=== PATIENT | male | born 1950 | race Caucasian/White ===

== ENCOUNTER → 2024-05-26 12:41 | Outpatient (REF) | payer OTHER, SELFPAY | LOC: RAD 12:41 | PROVIDERS: ATTENDING PHYSICIAN Physician Assistant Medical; FAMILY PHYSICIAN Family Medicine | DX: R06.02 Shortness of breath (principal) | CPT/HCPCS: 71046 ==

== ENCOUNTER → 2024-06-27 14:34 | Outpatient (REF) | payer OTHER, SELFPAY | LOC: HWRAD 14:34 | PROVIDERS: ATTENDING PHYSICIAN Internal Medicine Endocrinology, Diabetes & Metabolism; FAMILY PHYSICIAN Family Medicine | DX: E04.2 Nontoxic multinodular goiter (principal) | CPT/HCPCS: 76536 ==

== ENCOUNTER 2024-09-25 06:21 | Day surgery (SDC) | payer OTHER, SELFPAY | END 2024-09-25 16:06 | disposition home or self-care (01) | LOC: GI 06:21 | PROVIDERS: ATTENDING PHYSICIAN Internal Medicine | DX: D50.9 Iron deficiency anemia, unspecified (principal); K64.8 Other hemorrhoids; K57.10 Diverticulosis of small intestine without perforation or abscess without bleeding; K62.5 Hemorrhage of anus and rectum | CPT/HCPCS: 45378; 43239; 88305; 88342 ==

== ENCOUNTER 2024-09-29 10:31 | Outpatient (RCR) | payer OTHER, SELFPAY ==
[2024-09-29 11:05] VITALS: BP 141/79
[2024-09-29] MEDS: VENOFER 110 MG IV (11:11)
[2024-09-29 12:30] VITALS: BP 124/68
== END 2024-10-01 13:47 | disposition home or self-care (01) ==
LOC: OID 10:31
PROVIDERS: ATTENDING PHYSICIAN Internal Medicine; FAMILY PHYSICIAN Family Medicine
DX: D50.9 Iron deficiency anemia, unspecified (principal); K62.5 Hemorrhage of anus and rectum; K64.9 Unspecified hemorrhoids
CPT/HCPCS: 96365; J1756

== ENCOUNTER 2024-10-28 10:37 | Outpatient (RCR) | payer OTHER, SELFPAY ==
[2024-10-06 10:52] VITALS: BP 142/80
[2024-10-06] MEDS: VENOFER 110 MG IV (11:13)
[2024-10-06 12:28] VITALS: BP 129/77
[2024-10-13 10:50] VITALS: BP 131/78
[2024-10-13] MEDS: VENOFER 110 MG IV (11:01)
[2024-10-13 12:05] VITALS: BP 126/74
[2024-10-20 11:08] VITALS: BP 147/70
[2024-10-20] MEDS: VENOFER 110 MG IV (11:18)
[2024-10-20 12:23] VITALS: BP 138/76
[2024-10-28 10:45] VITALS: BP 148/74
[2024-10-28] MEDS: VENOFER 110 MG IV (10:53)
[2024-10-28 13:00] VITALS: BP 132/73
== END 2024-10-29 09:12 | disposition home or self-care (01) ==
LOC: OID 10:37
PROVIDERS: ATTENDING PHYSICIAN Internal Medicine; FAMILY PHYSICIAN Family Medicine
DX: D50.9 Iron deficiency anemia, unspecified (principal); K62.5 Hemorrhage of anus and rectum; K64.9 Unspecified hemorrhoids
CPT/HCPCS: 96365; J1756